=== PATIENT | female | born 1990 | race Hispanic/Latino ===

== ENCOUNTER 2021-12-01 05:09 | Emergency (ER) | payer BC ==
[2021-12-01] MEDS ORDERED: Orphenadrine Citrate 60 MG/2 ML VIAL ONE (05:59)
[2021-12-01] MEDS ORDERED: Acetaminophen 500 MG TAB ONE (06:03)
[2021-12-01] MEDS ORDERED: Ketorolac Tromethamine 30 MG/ML VIAL ONE (06:03)
[2021-12-01] MEDS ORDERED: Dexamethasone 10 MG/ML VIAL ONE (06:03)
== END 2021-12-01 06:30 | disposition home or self-care (01) ==
LOC: ERS 05:09
DX: M54.50 Low back pain, unspecified (principal); G43.909 Migraine, unspecified, not intractable, without status migrainosus; Z79.899 Other long term (current) drug therapy
CPT/HCPCS: 96372; 99283; J1100; J1885; J2360